=== PATIENT | female | born 1995 | race African-American/Black ===

== ENCOUNTER 2021-02-14 18:08 | Emergency (ER) | payer MEDICAID ==
[~2021-02-14] VITALS: Ht 175.3 cm; Wt 118.0 kg
[2021-02-14 18:33] VITALS: BP 169/105
== END 2021-02-14 19:28 | disposition left against medical advice (07) ==
LOC: ER 18:08
DX: R68.89 Other general symptoms and signs (principal); Z53.21 Procedure and treatment not carried out due to patient leaving prior to being seen by health care provider